=== PATIENT | female | born 1960 | race Caucasian/White ===

== ENCOUNTER 2017-11-15 10:27 | Emergency (ER) | payer OTHER ==
[~2017-11-15] VITALS: Ht 162.6 cm; Wt 74.4 kg
[~2017-11-15 10:27] MED LIST: ALBIPROI; ALBU.083IS IH; ALPR.25; AMLO5 PO; ATOR20 PO; AZIT250 PO; Aspir 8181 MG PO; BENA20 PO; CHOL10002 PO; CLOP75 PO; Coreg12.5 MG PO; FISH1000 PO; FLUSAL5005; GEMF600 PO; HYDCHL25 PO; HYDGUAL120 PO; LEVFLO500 PO; METF500; MONT10T; Mucinex600 MG PO; NIFE60ER; PRED20 PO; Prednisone20 MG PO; SERT25; TIOT18 IH; Ventolin Soln3 ML INH; ZOLP10
[2017-11-16] MEDS ORDERED: HYDR1TAB94 PO (11:59)
== END 2017-11-15 12:43 | disposition home or self-care (01) ==
LOC: ER 10:27
DX: S93.401A Sprain of unspecified ligament of right ankle, initial encounter (principal); W01.198A Fall on same level from slipping, tripping and stumbling with subsequent striking against other object, initial encounter; Z88.8 Allergy status to other drugs, medicaments and biological substances; Z88.2 Allergy status to sulfonamides; Z79.899 Other long term (current) drug therapy; Z79.82 Long term (current) use of aspirin; Z79.52 Long term (current) use of systemic steroids; J44.9 Chronic obstructive pulmonary disease, unspecified; Z87.891 Personal history of nicotine dependence
CPT/HCPCS: 73630; 99283-25

== ENCOUNTER 2017-11-16 09:56 | Emergency (ER) | payer OTHER ==
[~2017-11-16] VITALS: Ht 162.6 cm; Wt 74.4 kg
[2017-11-16] MEDS ORDERED: HYDR1TAB94 PO (11:59)
== END 2017-11-16 12:15 | disposition home or self-care (01) ==
LOC: ER 09:56
DX: S92.201A Fracture of unspecified tarsal bone(s) of right foot, initial encounter for closed fracture (principal); J44.9 Chronic obstructive pulmonary disease, unspecified; E11.9 Type 2 diabetes mellitus without complications; Z88.8 Allergy status to other drugs, medicaments and biological substances; Z88.2 Allergy status to sulfonamides; Z79.899 Other long term (current) drug therapy; Z79.82 Long term (current) use of aspirin; Z79.01 Long term (current) use of anticoagulants; Z87.891 Personal history of nicotine dependence; W01.0XXA Fall on same level from slipping, tripping and stumbling without subsequent striking against object, initial encounter
CPT/HCPCS: 29505; 99282-25

== ENCOUNTER 2018-02-20 09:13 | Day surgery (SDC) | payer OTHER ==
[~2018-02-20 09:13] MED LIST changes: +HYDR1TAB94 PO
== END 2018-02-20 22:47 | disposition home or self-care (01) ==
LOC: CT 09:13
PROVIDERS: Radiology Diagnostic Radiology
PROC: 0BBK3ZX Excision of Right Lung, Percutaneous Approach, Diagnostic (ICD-10-PCS; principal; 2018-02-20 11:00)
DX: R91.1 Solitary pulmonary nodule (principal); R91.8 Other nonspecific abnormal finding of lung field; R05 Cough; J42 Unspecified chronic bronchitis
CPT/HCPCS: 32405; 77012

== ENCOUNTER 2018-07-24 13:29 | Emergency (ER) | payer OTHER ==
[~2018-07-24] VITALS: Ht 162.6 cm; Wt 74.4 kg
[~2018-07-24 13:29] MED LIST changes: -ALPR.25; +ALPR.25 PO; -MONT10T; +MONT10T PO
[2018-07-24 13:59] LABS: BASOPHILS ABSOLUTE AUTO 0.09 K/mm3 (0.00-0.23); BASOPHILS PERCENT AUTO 1 % (0-2); EOSINOPHILS ABSOLUTE AUTO 0.43 K/mm3 (0.00-0.68); EOSINOPHILS PERCENT AUTO 4 % (0-6); Hematocrit 44.1 % (33.0-51.0); IMMATURE GRAN ABSOLUTE AUTO 0.05 K/mm3 (0.00-0.10); IMMATURE GRAN PERCENT AUTO 0 % (0-1); LYMPHOCYTES ABSOLUTE AUTO 2.63 K/mm3 (0.84-5.20); LYMPHOCYTES PERCENT AUTO 21 % (21-46); MONOCYTES PERCENT AUTO 8 % (4-13); Mean Corpuscular HGB 28.5 pg (26.0-34.0); Mean Corpuscular HGB Conc 31.7 g/dL (31.5-36.5); Mean Corpuscular Volume 90 fL (80-100); Mean Platelet Volume 10.9 fL (9.1-12.4); NEUTROPHILS ABSOLUTE AUTO 8.08 K/mm3 (1.96-9.15); NEUTROPHILS PERCENT AUTO 66 % (41-73); Platelet Count 324 K/mm3 (150-400); RDW Coefficient Variation 14.6 % (11.7-14.2); Red Blood Cell Count 4.92 M/mm3 (3.80-5.20); White Blood Cell Count 12.28 K/mm3 (4.00-11.30)
[2018-07-24 14:38] LABS: Alanine Aminotransfer (ALT/SGP 25 U/L (12-78); Albumin, Blood 3.7 g/dL (3.4-5.0); Albumin/Globulin Ratio 0.9 (0.8-1.8); Alk Phos 153 U/L (50-136); Anion Gap 7 mmol/L (6-16); Aspartate Aminotrans (AST/SGOT 19 U/L (12-37); Bilirubin, Total 0.4 mg/dL (0.1-1.0); Blood Urea Nitrogen 14 mg/dL (8-24); Bun/Creatinine Ratio 23.9 (12.0-20.0); CO2, Blood 26 mmol/L (21-32); Calcium, Blood 9.2 mg/dL (8.5-10.1); Chloride, Blood 106 mmol/L (98-108); Creatinine, Blood 0.59 mg/dL (0.40-1.00); Glomerular Filtration Rate >60 (60-); Glucose, Blood 108 mg/dL (70-99); Potassium, Blood 3.8 mmol/L (3.5-5.5); Sodium, Blood 139 mmol/L (136-145); Total Protein, Blood 7.7 g/dL (6.4-8.2); Troponin I <0.015 ng/mL (0.000-0.040)
== END 2018-07-24 15:22 | disposition left against medical advice (07) ==
LOC: ER 13:29
PROVIDERS: Physician Assistant
DX: R10.12 Left upper quadrant pain (principal); R10.30 Lower abdominal pain, unspecified; R53.83 Other fatigue; Z53.20 Procedure and treatment not carried out because of patient's decision for unspecified reasons
CPT/HCPCS: 36415; 71046; 80053; 83690; 84484; 85025; 93005; 93010; 99284-25

== ENCOUNTER → 2018-07-25 | Outpatient (CLI) | payer OTHER | END | disposition home or self-care (01) | LOC: LAB SHORT 12:10 → LAB 12:10 | DX: R05 Cough (principal) | CPT/HCPCS: 87070; 87077; 87186; 87205 ==

== ENCOUNTER 2018-07-27 10:52 | Emergency (ER) | payer OTHER ==
[~2018-07-27] VITALS: Ht 261.6 cm; Wt 74.4 kg
[2018-07-27 12:02] LABS: BASOPHILS ABSOLUTE AUTO 0.06 K/mm3 (0.00-0.23); BASOPHILS PERCENT AUTO 0 % (0-2); EOSINOPHILS ABSOLUTE AUTO 0.09 K/mm3 (0.00-0.68); EOSINOPHILS PERCENT AUTO 1 % (0-6); Hematocrit 43.2 % (33.0-51.0); Hemoglobin 13.8 g/dL (11.5-16.0); IMMATURE GRAN ABSOLUTE AUTO 0.07 K/mm3 (0.00-0.10); IMMATURE GRAN PERCENT AUTO 1 % (0-1); LYMPHOCYTES ABSOLUTE AUTO 1.49 K/mm3 (0.84-5.20); LYMPHOCYTES PERCENT AUTO 10 % (21-46); MONOCYTES ABSOLUTE AUTO 0.55 K/mm3 (0.16-1.47); MONOCYTES PERCENT AUTO 4 % (4-13); Mean Corpuscular HGB 28.5 pg (26.0-34.0); Mean Corpuscular HGB Conc 31.9 g/dL (31.5-36.5); Mean Corpuscular Volume 89 fL (80-100); NEUTROPHILS ABSOLUTE AUTO 12.65 K/mm3 (1.96-9.15); NEUTROPHILS PERCENT AUTO 85 % (41-73); Platelet Count 319 K/mm3 (150-400); RDW Coefficient Variation 14.6 % (11.7-14.2); Red Blood Cell Count 4.85 M/mm3 (3.80-5.20); White Blood Cell Count 14.91 K/mm3 (4.00-11.30)
[2018-07-27 12:35] LABS: Alanine Aminotransfer (ALT/SGP 23 U/L (12-78); Albumin, Blood 3.7 g/dL (3.4-5.0); Albumin/Globulin Ratio 0.9 (0.8-1.8); Alk Phos 133 U/L (50-136); Anion Gap 4 mmol/L (6-16); Aspartate Aminotrans (AST/SGOT 16 U/L (12-37); Bilirubin, Total 0.3 mg/dL (0.1-1.0); Blood Urea Nitrogen 16 mg/dL (8-24); Bun/Creatinine Ratio 27.6 (12.0-20.0); CO2, Blood 28 mmol/L (21-32); Calcium, Blood 8.9 mg/dL (8.5-10.1); Chloride, Blood 107 mmol/L (98-108); Creatinine, Blood 0.58 mg/dL (0.40-1.00); Globulin, Blood 3.9 g/dL (2.2-4.0); Glomerular Filtration Rate >60 (60-); Glucose, Blood 167 mg/dL (70-99); Potassium, Blood 3.8 mmol/L (3.5-5.5); Sodium, Blood 139 mmol/L (136-145); Total Protein, Blood 7.6 g/dL (6.4-8.2); Troponin I <0.015 ng/mL (0.000-0.040)
== END 2018-07-27 14:50 | disposition home or self-care (01) ==
LOC: ER 10:52
PROVIDERS: Emergency Medicine
DX: R10.9 Unspecified abdominal pain (principal); Z88.8 Allergy status to other drugs, medicaments and biological substances; Z88.2 Allergy status to sulfonamides; Z88.1 Allergy status to other antibiotic agents; Z79.899 Other long term (current) drug therapy; Z79.82 Long term (current) use of aspirin; Z79.52 Long term (current) use of systemic steroids; J44.9 Chronic obstructive pulmonary disease, unspecified; E11.9 Type 2 diabetes mellitus without complications; E78.5 Hyperlipidemia, unspecified; I10 Essential (primary) hypertension; F17.200 Nicotine dependence, unspecified, uncomplicated
CPT/HCPCS: 36415; 74177; 80053; 84484; 85025; 93005; 93010; 99284-25; Q9967

== ENCOUNTER → 2018-08-21 | Outpatient (CLI) | payer OTHER ==
[~2018-08-21] MED LIST changes: +ALBU90OI INH; -ALPR.25 PO; +ALPR.5 PO; -AMLO5 PO; +Advair Hfa 230-12 GM INH; +Amlodipine Bes2.5 MG PO; +FAMO40 PO; +FOLI1 PO; +PRED20; -TIOT18 IH; +TIOT18 INH
[2018-08-21 09:00] LABS: Alanine Aminotransfer (ALT/SGP 22 U/L (12-78); Albumin, Blood 3.7 g/dL (3.4-5.0); Albumin/Globulin Ratio 1.1 (0.8-1.8); Alk Phos 138 U/L (50-136); Anion Gap 7 mmol/L (6-16); Aspartate Aminotrans (AST/SGOT 8 U/L (12-37); Bilirubin, Total 0.2 mg/dL (0.1-1.0); Blood Urea Nitrogen 19 mg/dL (8-24); Bun/Creatinine Ratio 31.6 (12.0-20.0); CO2, Blood 29 mmol/L (21-32); Calcium, Blood 9.2 mg/dL (8.5-10.1); Chloride, Blood 104 mmol/L (98-108); Globulin, Blood 3.5 g/dL (2.2-4.0); Glomerular Filtration Rate >60 (60-); Glucose, Blood 184 mg/dL (70-99); Magnesium, Blood 1.9 mg/dL (1.6-2.4); Potassium, Blood 3.8 mmol/L (3.5-5.5); Sodium, Blood 140 mmol/L (136-145); Total Protein, Blood 7.2 g/dL (6.4-8.2)
== END | disposition home or self-care (01) ==
LOC: LAB 08:29 → LAB SHORT 08:29
PROVIDERS: Internal Medicine Hematology & Oncology
DX: C34.91 Malignant neoplasm of unspecified part of right bronchus or lung (principal)
CPT/HCPCS: 80053; 83735

== ENCOUNTER 2018-08-27 10:06 | Day surgery (SDC) | payer OTHER ==
[~2018-08-27] VITALS: Ht 162.6 cm; Wt 70.7 kg
[~2018-08-27 10:06] MED LIST changes: -ALBU90OI INH; -Advair Hfa 230-12 GM INH; -FAMO40 PO; -PRED20
--- NOTE | 2018-08-27 12:48 | NUR ---
History, Chart, Medications and Allergies reviewed before start of procedure. Lungs clear T/O to Auscultation. Patient confirms NPO status and agrees with scheduled surgery. Patient reports completing Chlorhexadine shower X2 prior to admission to hospital.
--- NOTE | 2018-08-27 15:41 | NUR ---
Patient up to Ambulate independently. Gait steady. Discharge instructions reviewed with patient. Patient verbalizes understanding. Copy given to patient to take home. Patient States Post-Procedure ride home has been arranged. Discharged via wheelchair to private car for ride home.
== END 2018-08-27 23:07 | disposition home or self-care (01) ==
LOC: ORSCMMR 10:06 → ORD 11:30 → ORSCMMR 11:30
PROVIDERS: Surgery
PROC: B5131ZA Fluoroscopy of Right Jugular Veins using Low Osmolar Contrast, Guidance (ICD-10-PCS; principal; 2018-08-27 11:30)
PROC: 05HM33Z Insertion of Infusion Device into Right Internal Jugular Vein, Percutaneous Approach (ICD-10-PCS; principal; 2018-08-27 11:30)
DX: C34.91 Malignant neoplasm of unspecified part of right bronchus or lung (principal); I10 Essential (primary) hypertension; J44.9 Chronic obstructive pulmonary disease, unspecified; E11.9 Type 2 diabetes mellitus without complications; F17.210 Nicotine dependence, cigarettes, uncomplicated; Z79.82 Long term (current) use of aspirin; Z79.899 Other long term (current) drug therapy
CPT/HCPCS: 77001; 82947; C1788; J0690; J1100; J1642; J2250; J2370; J2405; J2704; J3010; J7120

== ENCOUNTER → 2018-09-15 | Outpatient (CLI) | payer OTHER ==
[~2018-09-15] MED LIST changes: +ALBU90OI INH; +Advair Hfa 230-12 GM INH; +FAMO40 PO; +PRED20
[2018-09-15 10:07] LABS: Alanine Aminotransfer (ALT/SGP 21 U/L (12-78); Albumin, Blood 3.4 g/dL (3.4-5.0); Alk Phos 136 U/L (50-136); Anion Gap 10 mmol/L (6-16); Aspartate Aminotrans (AST/SGOT 7 U/L (12-37); Bilirubin, Total 0.2 mg/dL (0.1-1.0); Blood Urea Nitrogen 17 mg/dL (8-24); Bun/Creatinine Ratio 28.9 (12.0-20.0); CO2, Blood 26 mmol/L (21-32); Chloride, Blood 106 mmol/L (98-108); Creatinine, Blood 0.59 mg/dL (0.40-1.00); Globulin, Blood 3.3 g/dL (2.2-4.0); Glomerular Filtration Rate >60 (60-); Glucose, Blood 201 mg/dL (70-99); Magnesium, Blood 1.7 mg/dL (1.6-2.4); Sodium, Blood 142 mmol/L (136-145); Total Protein, Blood 6.7 g/dL (6.4-8.2)
== END | disposition home or self-care (01) ==
LOC: LAB SHORT 09:45 → LAB 09:45
PROVIDERS: Internal Medicine Hematology & Oncology
DX: C34.91 Malignant neoplasm of unspecified part of right bronchus or lung (principal)
CPT/HCPCS: 80053; 83735

== ENCOUNTER → 2018-10-07 | Outpatient (CLI) | payer OTHER ==
[2018-10-07 09:16] LABS: Alanine Aminotransfer (ALT/SGP 21 U/L (12-78); Albumin, Blood 3.4 g/dL (3.4-5.0); Albumin/Globulin Ratio 1.1 (0.8-1.8); Alk Phos 131 U/L (50-136); Anion Gap 7 mmol/L (6-16); Aspartate Aminotrans (AST/SGOT 9 U/L (12-37); Bilirubin, Total 0.2 mg/dL (0.1-1.0); Blood Urea Nitrogen 22 mg/dL (8-24); Bun/Creatinine Ratio 31.3 (12.0-20.0); CO2, Blood 29 mmol/L (21-32); Calcium, Blood 8.9 mg/dL (8.5-10.1); Chloride, Blood 103 mmol/L (98-108); Globulin, Blood 3.1 g/dL (2.2-4.0); Glomerular Filtration Rate >60 (60-); Glucose, Blood 281 mg/dL (70-99); Magnesium, Blood 1.6 mg/dL (1.6-2.4); Potassium, Blood 3.9 mmol/L (3.5-5.5); Sodium, Blood 139 mmol/L (136-145); Total Protein, Blood 6.5 g/dL (6.4-8.2)
== END | disposition home or self-care (01) ==
LOC: LAB SHORT 08:53 → LAB 08:53
PROVIDERS: Internal Medicine Hematology & Oncology
DX: C34.91 Malignant neoplasm of unspecified part of right bronchus or lung (principal)
CPT/HCPCS: 80053; 83735

== ENCOUNTER 2018-10-13 18:58 | Observation (INO) | payer OTHER ==
[~2018-10-13] VITALS: Ht 177.8 cm; Wt 75.1 kg
[~2018-10-13 18:58] MED LIST changes: -ALBU90OI INH; -Advair Hfa 230-12 GM INH; -FAMO40 PO; -PRED20
[2018-10-13 19:39] LABS: Hematocrit 37.6 % (33.0-51.0); Hemoglobin 12.6 g/dL (11.5-16.0); LYMPHOCYTES ABSOLUTE AUTO 2.59 K/mm3 (0.84-5.20); LYMPHOCYTES PERCENT AUTO 7 % (21-46); MONOCYTES ABSOLUTE AUTO 3.06 K/mm3 (0.16-1.47); MONOCYTES PERCENT AUTO 8 % (4-13); Mean Corpuscular HGB 29.2 pg (26.0-34.0); Mean Corpuscular HGB Conc 33.5 g/dL (31.5-36.5); Mean Corpuscular Volume 87 fL (80-100); Mean Platelet Volume 10.9 fL (9.1-12.4); Platelet Count 280 K/mm3 (150-400); RDW Coefficient Variation 15.3 % (11.7-14.2); RDW Standard Deviation 48.9 fL (35.1-46.3); Red Blood Cell Count 4.32 M/mm3 (3.80-5.20); White Blood Cell Count 39.18 K/mm3 (4.00-11.30)
[2018-10-13 19:40] LABS: BASOPHILS ABSOLUTE AUTO 0.02 K/mm3 (0.00-0.23); BASOPHILS PERCENT AUTO 0 % (0-2); EOSINOPHILS ABSOLUTE AUTO 0.22 K/mm3 (0.00-0.68); EOSINOPHILS PERCENT AUTO 1 % (0-6); IMMATURE GRAN ABSOLUTE AUTO 0.77 K/mm3 (0.00-0.10); IMMATURE GRAN PERCENT AUTO 2 % (0-1); NEUTROPHILS ABSOLUTE AUTO 32.52 K/mm3 (1.96-9.15); NEUTROPHILS PERCENT AUTO 83 % (41-73)
[2018-10-13 19:51] LABS: Alanine Aminotransfer (ALT/SGP 20 U/L (12-78); Albumin, Blood 3.2 g/dL (3.4-5.0); Albumin/Globulin Ratio 0.9 (0.8-1.8); Alk Phos 233 U/L (50-136); Anion Gap 5 mmol/L (6-16); Aspartate Aminotrans (AST/SGOT 18 U/L (12-37); Bilirubin, Total 0.2 mg/dL (0.1-1.0); Blood Urea Nitrogen 18 mg/dL (8-24); Bun/Creatinine Ratio 25.9 (12.0-20.0); CO2, Blood 29 mmol/L (21-32); Calcium, Blood 8.3 mg/dL (8.5-10.1); Chloride, Blood 97 mmol/L (98-108); Globulin, Blood 3.4 g/dL (2.2-4.0); Glomerular Filtration Rate >60 (60-); Glucose, Blood 189 mg/dL (70-99); Potassium, Blood 3.7 mmol/L (3.5-5.5); Sodium, Blood 131 mmol/L (136-145); Total Protein, Blood 6.6 g/dL (6.4-8.2); Troponin I <0.015 ng/mL (0.000-0.040)
[2018-10-13] MEDS ORDERED: ALBU90OI INH (21:58)
[2018-10-13] MEDS ORDERED: Advair Hfa 230-12 GM INH (22:00)
[2018-10-13] MEDS ORDERED: AZIT250 PO (22:03)
--- NOTE | 2018-10-14 06:24 | NUR ---
T/F AND SUMMARY: REPORT RECIEVED FROM JEANETH TROTTER RN AND PT T/F'D TO ROOM 302 VIA [employer] AT 0203. SHE WAS ORIENTED TO ROOM AND CALL SYSTEM AND INSTRUCTED TO CALL FOR ASSIST OOB D/T COMPLAINT OF RECENT INCREASED WEAKNESS. SHE REPORTED CHEST/PLEURITIC PAIN W/TORADOL RECIEVED FOR GOOD EFFECT. SHE'S DENIES S/S CARDIAC DISTRESS BUT HAS REPORTED SOME NEW INDEGESTION/REFLUX SHE CONTRIBUTES TO RECENT CHEMO. MEDIPORT IS PRESENT TO R.CW BUT IS NOT ACCESSED. PT HAS LUNG CANCER W/TX 1 WEEK AGO. SHE'S ALSO HAD A L.MIDDLE LOBECTOMY AND L.UPPER LOBE RESECTION RESULT OF CANCER. LS WERE COARSE IN THE BASES W/WHEEZE HEARD TO R.UPPER LOBE, RT MADE AWARE. SHE WORE 2L O2 AT HS PER HOME DOSING FOR SPO2>92%. TELEMETRY WAS APPLIED AND PT HAS REMAINED IN NSR AT 80'S-90'S BPM. IV ABX WERE RECIEVED THEN SL. PE STUDY WAS (-). SPUTUM SPECIMEN WAS OBTAINED AND SENT BUT UNSURE IF SPECIMEN WILL BE ADEQUATE. RESPIRATORY PANEL WAS ALSO OBTAINED. NO ACUTE CHANGES, VSS/AFEBRILE. BP SLIGHTLY HYPERTENSIVE THIS AM BUT PT DUE TO HAVE SCHEDULED MEDS ON DAY SHIFT. WCTM AND REPORT TO DAY RN.
[2018-10-14 08:22] LABS: Hematocrit 34.8 % (33.0-51.0); Hemoglobin 11.9 g/dL (11.5-16.0); Mean Corpuscular HGB 29.2 pg (26.0-34.0); Mean Corpuscular HGB Conc 34.2 g/dL (31.5-36.5); Mean Corpuscular Volume 86 fL (80-100); Mean Platelet Volume 10.6 fL (9.1-12.4); Platelet Count 222 K/mm3 (150-400); RDW Coefficient Variation 15.4 % (11.7-14.2); RDW Standard Deviation 47.5 fL (35.1-46.3); Red Blood Cell Count 4.07 M/mm3 (3.80-5.20); White Blood Cell Count 32.46 K/mm3 (4.00-11.30)
[2018-10-14 09:22] LABS: Alanine Aminotransfer (ALT/SGP 15 U/L (12-78); Albumin, Blood 2.9 g/dL (3.4-5.0); Albumin/Globulin Ratio 0.8 (0.8-1.8); Alk Phos 216 U/L (50-136); Anion Gap 6 mmol/L (6-16); Aspartate Aminotrans (AST/SGOT 12 U/L (12-37); Bilirubin, Total 0.4 mg/dL (0.1-1.0); Blood Urea Nitrogen 15 mg/dL (8-24); Bun/Creatinine Ratio 23.2 (12.0-20.0); CO2, Blood 28 mmol/L (21-32); Calcium, Blood 8.2 mg/dL (8.5-10.1); Chloride, Blood 100 mmol/L (98-108); Creatinine, Blood 0.65 mg/dL (0.40-1.00); Globulin, Blood 3.5 g/dL (2.2-4.0); Glomerular Filtration Rate >60 (60-); Glucose, Blood 134 mg/dL (70-99); Potassium, Blood 3.8 mmol/L (3.5-5.5); Sodium, Blood 134 mmol/L (136-145); Total Protein, Blood 6.4 g/dL (6.4-8.2)
--- NOTE | 2018-10-14 10:50 | NUR ---
Upon receiving an admit referral, I visited patient. Patient is lying in bed and alert with life partner Graham, Bedside. Patient tells about her recent hospital stay, about her family and about what inspires and strengthens her. I listen empathically, encourage self care and provide a calming presence. Patient and Graham respond well and show signs of reduced stress.
--- NOTE | 2018-10-14 16:28 | NUR ---
SHIFT SUMMARY MEDICATED FOR PAIN X1 THIS SHIFT. PT HAS BEEN INDEPENDENT IN ROOM. OXYGEN AT 2L VIA NC. PT HAS HAD NO FURTHER REQUESTS OR COMPLAINTS THIS SHIFT. NO ACUTE CHANGES THIS SHIFT. CALL LIGHT IN REACH. WILL CONTINUE TO MONITOR AND REPORT TO ONCOMING RN.
[2018-10-14 18:13] LABS: Adenovirus Not Detected (NOT DETECT); Bordetella pertussis Not Detected (NOT DETECT); Chlamydophila pneumoniae Not Detected (NOT DETECT); Coronavirus 229E Not Detected (NOT DETECT); Coronavirus HKU1 Not Detected (NOT DETECT); Coronavirus NL63 Not Detected (NOT DETECT); Coronavirus OC43 Not Detected (NOT DETECT); Human Metapneumovirus Not Detected (NOT DETECT); Human Rhinovirus/Enterovirus Not Detected (NOT DETECT); Influenza A Not Detected (NOT DETECT); Influenza A/2009-H1 Not Detected (NOT DETECT); Influenza A/H1 Not Detected (NOT DETECT); Influenza A/H3 Not Detected (NOT DETECT); Influenza B Not Detected (NOT DETECT); Mycoplasma pneumoniae Not Detected (NOT DETECT); Parainfluenza Virus 1 Not Detected (NOT DETECT); Parainfluenza Virus 2 Not Detected (NOT DETECT); Parainfluenza Virus 3 Not Detected (NOT DETECT); Parainfluenza Virus 4 Not Detected (NOT DETECT); Respiratory Syncytial Virus Not Detected (NOT DETECT)
[2018-10-15 04:58] LABS: EOSINOPHILS PERCENT AUTO 0 % (0-6); Hematocrit 33.6 % (33.0-51.0); Hemoglobin 11.4 g/dL (11.5-16.0); IMMATURE GRAN ABSOLUTE AUTO 0.91 K/mm3 (0.00-0.10); IMMATURE GRAN PERCENT AUTO 2 % (0-1); LYMPHOCYTES ABSOLUTE AUTO 0.63 K/mm3 (0.84-5.20); LYMPHOCYTES PERCENT AUTO 2 % (21-46); MONOCYTES ABSOLUTE AUTO 1.16 K/mm3 (0.16-1.47); MONOCYTES PERCENT AUTO 3 % (4-13); Mean Corpuscular HGB Conc 33.9 g/dL (31.5-36.5); Mean Corpuscular Volume 86 fL (80-100); Mean Platelet Volume 11.4 fL (9.1-12.4); NEUTROPHILS ABSOLUTE AUTO 37.18 K/mm3 (1.96-9.15); NEUTROPHILS PERCENT AUTO 93 % (41-73); Platelet Count 224 K/mm3 (150-400); RDW Coefficient Variation 15.3 % (11.7-14.2); RDW Standard Deviation 47.8 fL (35.1-46.3); Red Blood Cell Count 3.93 M/mm3 (3.80-5.20); White Blood Cell Count 39.91 K/mm3 (4.00-11.30)
[2018-10-15 04:59] LABS: BASOPHILS ABSOLUTE AUTO 0.03 K/mm3 (0.00-0.23); BASOPHILS PERCENT AUTO 0 % (0-2)
[2018-10-15 05:20] LABS: Anion Gap 8 mmol/L (6-16); Blood Urea Nitrogen 17 mg/dL (8-24); Bun/Creatinine Ratio 34.2 (12.0-20.0); CO2, Blood 25 mmol/L (21-32); Calcium, Blood 8.4 mg/dL (8.5-10.1); Chloride, Blood 103 mmol/L (98-108); Glomerular Filtration Rate >60 (60-); Glucose, Blood 292 mg/dL (70-99); Potassium, Blood 4.1 mmol/L (3.5-5.5); Sodium, Blood 136 mmol/L (136-145)
--- NOTE | 2018-10-15 06:18 | NUR ---
SHIFT SUMMARY: 58 Y/O FEMALE RESTED COMFORTABLY ALL SHIFT, TELEMETRY REFLECTS NSR, DENIES PAIN OR NAUSEA, BED LOW POSITION, CALL LIGHT AT SIDE.
[2018-10-15] MEDS ORDERED: FAMO40 PO (11:36)
[2018-10-15] MEDS ORDERED: PRED20 (11:37)
--- NOTE | 2018-10-15 12:30 | NUR ---
PT. DISCHARGED HOME WITH SPOUSE.INSTRUCTIONS GIVEN AND SHE VERBALIZED UNDERSTANDING.
== END 2018-10-15 13:33 | disposition home or self-care (01) ==
LOC: ER 18:58 → MEDS 18:59 → ER 10-14 00:38 → MEDS 10-14 00:38
PROVIDERS: Internal Medicine; Physician Assistant; ADMIT Internal Medicine
DX: J44.0 Chronic obstructive pulmonary disease with (acute) lower respiratory infection (principal); J20.9 Acute bronchitis, unspecified; J96.20 Acute and chronic respiratory failure, unspecified whether with hypoxia or hypercapnia; D72.829 Elevated white blood cell count, unspecified; E11.9 Type 2 diabetes mellitus without complications; G43.909 Migraine, unspecified, not intractable, without status migrainosus; F32.9 Major depressive disorder, single episode, unspecified; F41.9 Anxiety disorder, unspecified; K21.9 Gastro-esophageal reflux disease without esophagitis; E78.5 Hyperlipidemia, unspecified; F17.210 Nicotine dependence, cigarettes, uncomplicated; Z79.899 Other long term (current) drug therapy; Z79.82 Long term (current) use of aspirin; Z79.51 Long term (current) use of inhaled steroids; Z88.2 Allergy status to sulfonamides; Z88.8 Allergy status to other drugs, medicaments and biological substances; Z88.0 Allergy status to penicillin; Z91.041 Radiographic dye allergy status
CPT/HCPCS: 0099U; 36415; 71046; 71260; 76705; 80048; 80053; 82947; 83605; 83690; 84484; 85025; 85027; 85379; 87070; 87077; 87186; 87205; 93005; 93010; 94640; 94760; 96365; 96366; 96367; 96372; 96375; 96376; 99285-25; G0378; J0456; J1650; J1885; J1956; J2270; J2405; J2930; J3010; J3370; J7050; Q9967

== ENCOUNTER → 2018-10-28 | Outpatient (CLI) | payer OTHER ==
[~2018-10-28] MED LIST changes: +ALBU90OI INH; +Advair Hfa 230-12 GM INH; +FAMO40 PO; +PRED20
[2018-10-28 09:39] LABS: Alanine Aminotransfer (ALT/SGP 24 U/L (12-78); Albumin, Blood 3.2 g/dL (3.4-5.0); Albumin/Globulin Ratio 1.1 (0.8-1.8); Alk Phos 114 U/L (50-136); Anion Gap 8 mmol/L (6-16); Aspartate Aminotrans (AST/SGOT 13 U/L (12-37); Bilirubin, Total 0.4 mg/dL (0.1-1.0); Blood Urea Nitrogen 12 mg/dL (8-24); Bun/Creatinine Ratio 25.4 (12.0-20.0); CO2, Blood 26 mmol/L (21-32); Calcium, Blood 8.3 mg/dL (8.5-10.1); Chloride, Blood 101 mmol/L (98-108); Creatinine, Blood 0.47 mg/dL (0.40-1.00); Glomerular Filtration Rate >60 (60-); Glucose, Blood 264 mg/dL (70-99); Potassium, Blood 4.5 mmol/L (3.5-5.5); Sodium, Blood 135 mmol/L (136-145); Total Protein, Blood 6.2 g/dL (6.4-8.2)
[2018-10-28 09:54] LABS: Magnesium, Blood 1.1 mg/dL (1.6-2.4)
== END | disposition home or self-care (01) ==
LOC: LAB 08:09 → LAB SHORT 08:09
PROVIDERS: Internal Medicine Hematology & Oncology
DX: C34.91 Malignant neoplasm of unspecified part of right bronchus or lung (principal)
CPT/HCPCS: 80053; 83735

== ENCOUNTER → 2018-10-29 | Outpatient (CLI) | payer OTHER | END | disposition home or self-care (01) | LOC: LAB 09:57 → LAB SHORT 09:57 | DX: C34.91 Malignant neoplasm of unspecified part of right bronchus or lung (principal) | CPT/HCPCS: 36415; 83735 ==

== ENCOUNTER → 2018-12-16 | Outpatient (CLI) | payer OTHER ==
[2018-12-16 14:53] LABS: Alanine Aminotransfer (ALT/SGP 36 U/L (12-78); Albumin, Blood 3.7 g/dL (3.4-5.0); Albumin/Globulin Ratio 1.2 (0.8-1.8); Alk Phos 110 U/L (50-136); Anion Gap 6 mmol/L (6-16); Aspartate Aminotrans (AST/SGOT 23 U/L (12-37); Bilirubin, Total 0.3 mg/dL (0.1-1.0); Blood Urea Nitrogen 15 mg/dL (8-24); Bun/Creatinine Ratio 24.6 (12.0-20.0); CO2, Blood 28 mmol/L (21-32); Calcium, Blood 8.9 mg/dL (8.5-10.1); Chloride, Blood 107 mmol/L (98-108); Creatinine, Blood 0.61 mg/dL (0.40-1.00); Glomerular Filtration Rate >60 (60-); Glucose, Blood 106 mg/dL (70-99); Magnesium, Blood 1.4 mg/dL (1.6-2.4); Sodium, Blood 141 mmol/L (136-145); Total Protein, Blood 6.7 g/dL (6.4-8.2)
== END ==
LOC: LAB 10:10 → LAB SHORT 10:10
PROVIDERS: Internal Medicine Hematology & Oncology
DX: C34.91 Malignant neoplasm of unspecified part of right bronchus or lung (principal); R10.9 Unspecified abdominal pain; E78.5 Hyperlipidemia, unspecified
CPT/HCPCS: 80053; 83735

== ENCOUNTER → 2019-07-15 | Outpatient (CLI) | payer OTHER | END | disposition home or self-care (01) | LOC: LAB SHORT 11:50 → LAB 11:50 | DX: R05 Cough (principal) | CPT/HCPCS: 87070; 87205 ==

== ENCOUNTER 2020-01-04 02:59 | Emergency (ER) | payer OTHER ==
[~2020-01-04] VITALS: Ht 162.6 cm; Wt 72.6 kg
[~2020-01-04 02:59] MED LIST changes: +Percocet 5-3251 EACH PO
[2020-01-04] MEDS ORDERED: LIDO700A20 TOP (04:30)
== END 2020-01-04 04:36 | disposition home or self-care (01) ==
LOC: ER 02:59
DX: R07.89 Other chest pain (principal); F17.210 Nicotine dependence, cigarettes, uncomplicated; J44.9 Chronic obstructive pulmonary disease, unspecified; E11.9 Type 2 diabetes mellitus without complications; Z88.2 Allergy status to sulfonamides; Z91.041 Radiographic dye allergy status; Z88.0 Allergy status to penicillin; Z88.1 Allergy status to other antibiotic agents; Z79.899 Other long term (current) drug therapy; Z79.82 Long term (current) use of aspirin
CPT/HCPCS: 71101; 99283; A9270

== ENCOUNTER 2020-01-20 13:31 | Inpatient (IN) | payer OTHER ==
[~2020-01-20] VITALS: Ht 162.6 cm; Wt 72.3 kg
[~2020-01-20 13:31] MED LIST changes: +LIDO700A20 TOP
[2020-01-20 13:52] LABS: Hematocrit 29.4 % (33.0-51.0); Hemoglobin 9.2 g/dL (11.5-16.0); Mean Corpuscular HGB 27.8 pg (26.0-34.0); Mean Corpuscular HGB Conc 31.3 g/dL (31.5-36.5); Mean Corpuscular Volume 89 fL (80-100); Mean Platelet Volume 9.4 fL (9.1-12.4); NRBC ABSOLUTE 0.02 K/mm3 (0.00-0.02); NRBC Auto 0.1 /100 WBC (0.0-0.2); Platelet Count 456 K/mm3 (150-400); RDW Coefficient Variation 14.9 % (11.7-14.2); RDW Standard Deviation 48.5 fL (35.1-46.3); Red Blood Cell Count 3.31 M/mm3 (3.80-5.20); White Blood Cell Count 26.72 K/mm3 (4.00-11.30)
[2020-01-20 14:12] LABS: Alanine Aminotransfer (ALT/SGP 61 U/L (12-78); Albumin, Blood 2.4 g/dL (3.4-5.0); Albumin/Globulin Ratio 0.6 (0.8-1.8); Alk Phos 232 U/L (50-136); Anion Gap 5 mmol/L (6-16); Aspartate Aminotrans (AST/SGOT 82 U/L (12-37); Bilirubin, Total 0.3 mg/dL (0.1-1.0); Blood Urea Nitrogen 17 mg/dL (8-24); Bun/Creatinine Ratio 27.8 (12.0-20.0); CO2, Blood 30 mmol/L (21-32); Calcium, Blood 8.8 mg/dL (8.5-10.1); Chloride, Blood 99 mmol/L (98-108); Creatinine, Blood 0.61 mg/dL (0.40-1.00); Globulin, Blood 4.3 g/dL (2.2-4.0); Glomerular Filtration Rate >60 (60-); Glucose, Blood 128 mg/dL (70-99); Potassium, Blood 4.5 mmol/L (3.5-5.5); Sodium, Blood 134 mmol/L (136-145); Total Protein, Blood 6.7 g/dL (6.4-8.2); Troponin I <0.015 ng/mL (0.000-0.040)
[2020-01-20 14:26] LABS: BASOPHILS PERCENT MAN 0 % (0-2); EOSINOPHILS PERCENT MAN 0 % (0-6); LYMPHOCYTES ABSOLUTE MAN 1.06 K/mm3 (0.84-5.20); LYMPHOCYTES PERCENT MAN 4 % (21-46); MONOCYTES ABSOLUTE MAN 0.26 K/mm3 (0.16-1.47); MONOCYTES PERCENT MAN 1 % (4-13); NEUTROPHILS ABSOLUTE MAN 25.38 K/mm3 (1.96-9.15); SEG NEUTROPHILS PERCENT MAN 95 % (41-73); TOTAL CELLS COUNTED 100
--- NOTE | 2020-01-20 17:20 | NUR ---
pt being admited from ER no polst or AD on file. case confrence with intensive care ambulance paramedic in ER.
[2020-01-20 18:04] LABS: SARS-Cov-2 (COVID-19) PCR, MMC Negative (NEGATIVE)
[2020-01-20 18:05] LABS: Influenza A, PCR Negative (NEGATIVE); Influenza B, PCR Negative (NEGATIVE); Resp Syncytial Virus, PCR Negative (NEGATIVE)
[2020-01-20 18:05] LABS: International Normalized Ratio 1.07; Prothrombin Time Results 11.4 Sec (9.7-11.5)
[2020-01-21 01:59] LABS: Adenovirus Not Detected (NOT DETECT); Bordetella pertussis Not Detected (NOT DETECT); Chlamydophila pneumoniae Not Detected (NOT DETECT); Coronavirus 229E Not Detected (NOT DETECT); Coronavirus HKU1 Not Detected (NOT DETECT); Coronavirus NL63 Not Detected (NOT DETECT); Coronavirus OC43 Not Detected (NOT DETECT); Human Metapneumovirus Not Detected (NOT DETECT); Human Rhinovirus/Enterovirus Not Detected (NOT DETECT); Influenza A/2009-H1 Not Detected (NOT DETECT); Influenza A/H1 Not Detected (NOT DETECT); Influenza A/H3 Not Detected (NOT DETECT); Influenza B Not Detected (NOT DETECT); Mycoplasma pneumoniae Not Detected (NOT DETECT); Parainfluenza Virus 1 Not Detected (NOT DETECT); Parainfluenza Virus 2 Not Detected (NOT DETECT); Parainfluenza Virus 3 Not Detected (NOT DETECT); Parainfluenza Virus 4 Not Detected (NOT DETECT); Respiratory Syncytial Virus Not Detected (NOT DETECT); SARS-Cov-2 (COVID-19), BioFire Not Detected (NOT DETECT)
--- NOTE | 2020-01-21 05:30 | NUR ---
SHIFT SUMMARY PT A/O X4; PLEASANT AND COOPERATIVE WITH CARE. PT IS SBA/IND TO THE BATHROOM. SHE IS CURRENTLY ON 3 LITERS O2 VIA NC. C/O SOB AND COUGHING. HX LUNG CANCER AND ONCOLOGY CONSULT CALLED THIS SHIFT. THE PATIENT HAS AN UNACCESSED MEDIPORT IN THE R CHEST WALL. PT HAS BEEN SLEEPING FOR THE MAJORITY OF THE SHIFT. VSS; RESTING IN BED W/CALL LIGHT IN REACH.
[2020-01-21 06:19] LABS: Hematocrit 28.9 % (33.0-51.0); Hemoglobin 8.9 g/dL (11.5-16.0); Mean Corpuscular HGB 27.1 pg (26.0-34.0); Mean Corpuscular HGB Conc 30.8 g/dL (31.5-36.5); Mean Corpuscular Volume 88 fL (80-100); Mean Platelet Volume 9.3 fL (9.1-12.4); NRBC ABSOLUTE 0.02 K/mm3 (0.00-0.02); NRBC Auto 0.1 /100 WBC (0.0-0.2); Platelet Count 447 K/mm3 (150-400); RDW Coefficient Variation 14.7 % (11.7-14.2); Red Blood Cell Count 3.28 M/mm3 (3.80-5.20); White Blood Cell Count 25.08 K/mm3 (4.00-11.30)
--- NOTE | 2020-01-21 06:19 | NUR ---
I AGREE WITH KATIUSKA WASHINGTON'S ASSESSMENT ON THIS PATIENT.
[2020-01-21 06:41] LABS: Alanine Aminotransfer (ALT/SGP 42 U/L (12-78); Albumin, Blood 2.3 g/dL (3.4-5.0); Albumin/Globulin Ratio 0.6 (0.8-1.8); Alk Phos 204 U/L (50-136); Anion Gap 7 mmol/L (6-16); Aspartate Aminotrans (AST/SGOT 31 U/L (12-37); Bilirubin, Total 0.4 mg/dL (0.1-1.0); Blood Urea Nitrogen 16 mg/dL (8-24); Bun/Creatinine Ratio 25.4 (12.0-20.0); CO2, Blood 29 mmol/L (21-32); Calcium, Blood 8.5 mg/dL (8.5-10.1); Chloride, Blood 100 mmol/L (98-108); Creatinine, Blood 0.63 mg/dL (0.40-1.00); Globulin, Blood 3.9 g/dL (2.2-4.0); Glomerular Filtration Rate >60 (60-); Glucose, Blood 193 mg/dL (70-99); Potassium, Blood 3.9 mmol/L (3.5-5.5); Sodium, Blood 136 mmol/L (136-145); Total Protein, Blood 6.2 g/dL (6.4-8.2); Troponin I <0.015 ng/mL (0.000-0.040)
--- NOTE | 2020-01-21 13:19 | NUR ---
ECHOCARDIOGRAM COMPLETED
--- NOTE | 2020-01-21 13:20 | NUR ---
Spiritual care visit/Advance Directive (AD) Education conducted. Patient is lying in bed and laert. Patient expresses interest in AD so I explain the importance and process. I walk her through the sections of the AD booklet she tells me that she does not want chest compressions, a "vent" or a "feeding tube" and so I point to the section that pertains to these issues. I also tell her about the filing process and that we have a few noteries on staff. Patient voices a comprehension of the information. I talk with patient about her diagnosis and the things and people that inspire her. Patient shares personal information. I listen empathically and provide a calming presence. Patient receives a call as we are wrapping up and so I let her talk to her son as I exit the .
--- NOTE | 2020-01-21 16:36 | NUR ---
PATIENT IS ALERT AND ORIENTED AND COOPERATIVE WITH CARE. COMPLAINS OF BACK PAIN, MEDICATED PER EMAR. ON 2L O2 VIA NC. NO COMPLAINTS OF SOB. VSS. IND IN HER ROOM. THE PATIENT'S WAS AT THE BEDSIDE THIS MORNING. ONCOLOGY CONSULTED, DR. ALTMAN SAW THE PATIENT TODAY. WILL CONTINUE TO MONITOR
--- NOTE | 2020-01-21 19:13 | NUR ---
Spiritual care note: Tina had some questions about ehr code status options. I answered her questions, and we discussed her wishes at length. She decided to change her status to DNR. I informed RN and placed DNR arm band.
[2020-01-22 04:36] LABS: Hematocrit 25.8 % (33.0-51.0); Hemoglobin 8.3 g/dL (11.5-16.0); Mean Corpuscular HGB 28.4 pg (26.0-34.0); Mean Corpuscular HGB Conc 32.2 g/dL (31.5-36.5); Mean Corpuscular Volume 88 fL (80-100); Mean Platelet Volume 9.1 fL (9.1-12.4); Platelet Count 397 K/mm3 (150-400); RDW Coefficient Variation 14.9 % (11.7-14.2); RDW Standard Deviation 47.3 fL (35.1-46.3); Red Blood Cell Count 2.92 M/mm3 (3.80-5.20); White Blood Cell Count 28.37 K/mm3 (4.00-11.30)
--- NOTE | 2020-01-22 04:48 | NUR ---
SHIFT SUMMARY PT A/O X4; IND AND COOPERATIVE WITH CARE. PT HAS SLEPT FOR THE MAJORITY OF THE SHIFT. C/O BACK PAIN AND TREATED PER EMR. CURRENTLY ON 2 LITERS O2 VIA NC. DENIES ANY SHORTNESS OF BREATH. VSS; RESTING COMFORTABLY IN BED WITH CALL LIGHT IN REACH.
[2020-01-22 05:05] LABS: Anion Gap 3 mmol/L (6-16); Blood Urea Nitrogen 20 mg/dL (8-24); Bun/Creatinine Ratio 27.4 (12.0-20.0); CO2, Blood 33 mmol/L (21-32); Calcium, Blood 8.4 mg/dL (8.5-10.1); Chloride, Blood 102 mmol/L (98-108); Creatinine, Blood 0.73 mg/dL (0.40-1.00); Glomerular Filtration Rate >60 (60-); Glucose, Blood 191 mg/dL (70-99); Potassium, Blood 3.9 mmol/L (3.5-5.5); Sodium, Blood 138 mmol/L (136-145)
[2020-01-22] MEDS ORDERED: BENMENLOZ (14:19)
[2020-01-22] MEDS ORDERED: GUAI600T33 PO (14:20)
[2020-01-22] MEDS ORDERED: LIDOCAINE1 EAC1 TOP (14:21)
[2020-01-22] MEDS ORDERED: ELIQUIS5 MG PO (14:23)
[2020-01-22] MEDS ORDERED: LEVO750 PO (14:24)
[2020-01-22] MEDS ORDERED: PRED20 PO (14:25)
== END 2020-01-22 15:16 | disposition home or self-care (01) | DRG 175 ==
LOC: ER 13:31 → MEDS 13:32 → ENPENDDIS 01-22 14:24 → MEDS 01-22 15:16
PROVIDERS: Emergency Medicine; Nurse Practitioner Acute Care; ADMIT Internal Medicine
DX: I26.99 Other pulmonary embolism without acute cor pulmonale (principal); J96.21 Acute and chronic respiratory failure with hypoxia; J18.9 Pneumonia, unspecified organism; J44.0 Chronic obstructive pulmonary disease with (acute) lower respiratory infection; J44.1 Chronic obstructive pulmonary disease with (acute) exacerbation; C78.00 Secondary malignant neoplasm of unspecified lung; Z20.828 Contact with and (suspected) exposure to other viral communicable diseases; E78.5 Hyperlipidemia, unspecified; F41.9 Anxiety disorder, unspecified; Z66 Do not resuscitate; I10 Essential (primary) hypertension; E11.9 Type 2 diabetes mellitus without complications; K21.9 Gastro-esophageal reflux disease without esophagitis; F17.210 Nicotine dependence, cigarettes, uncomplicated; Z51.5 Encounter for palliative care; Z92.21 Personal history of antineoplastic chemotherapy; Z92.3 Personal history of irradiation; Z99.81 Dependence on supplemental oxygen; Z79.82 Long term (current) use of aspirin; Z79.51 Long term (current) use of inhaled steroids
CPT/HCPCS: 0202U; 0241U; 36415; 71045; 71260; 80048; 80053; 83605; 83880; 84145; 84484; 85025; 85027; 85379; 85610; 85730; 87040; 93005; 93010; 93306; 94640; 94760; 94761; 96374; 96375; 99285-25; J1650; J2543; J2930; J7050; Q9967

== ENCOUNTER → 2020-02-02 | Outpatient (CLI) | payer OTHER ==
[~2020-02-02] MED LIST changes: +ADVAIR HFA 230-28 GM INH; -Advair Hfa 230-12 GM INH; +BENMENLOZ; -CHOL10002 PO; +ELIQUIS5 MG PO; +FAMO20 PO; +GUAI600T33 PO; +LEVO750 PO; +LIDOCAINE1 EAC1 TOP; +METFORMIN HCL500 M2 PO; +NEURONTIN300 MG PO; +OXYCODONE-ACET1 EAC3 PO; +SPIRIVA RESPIMAT4 G3 INH; +VITAMIN D31000 UNI1 PO
[2020-02-02 13:05] LABS: BASOPHILS ABSOLUTE AUTO 0.07 K/mm3 (0.00-0.23); BASOPHILS PERCENT AUTO 0 % (0-2); EOSINOPHILS ABSOLUTE AUTO 0.07 K/mm3 (0.00-0.68); EOSINOPHILS PERCENT AUTO 0 % (0-6); Hematocrit 25.3 % (33.0-51.0); Hemoglobin 7.7 g/dL (11.5-16.0); IMMATURE GRAN ABSOLUTE AUTO 0.23 K/mm3 (0.00-0.10); IMMATURE GRAN PERCENT AUTO 1 % (0-1); LYMPHOCYTES ABSOLUTE AUTO 0.62 K/mm3 (0.84-5.20); LYMPHOCYTES PERCENT AUTO 2 % (21-46); MONOCYTES ABSOLUTE AUTO 1.34 K/mm3 (0.16-1.47); MONOCYTES PERCENT AUTO 4 % (4-13); Mean Corpuscular HGB 27.4 pg (26.0-34.0); Mean Corpuscular HGB Conc 30.4 g/dL (31.5-36.5); Mean Corpuscular Volume 90 fL (80-100); Mean Platelet Volume 10.3 fL (9.1-12.4); NEUTROPHILS ABSOLUTE AUTO 29.02 K/mm3 (1.96-9.15); NEUTROPHILS PERCENT AUTO 93 % (41-73); Platelet Count 363 K/mm3 (150-400); RDW Coefficient Variation 15.9 % (11.7-14.2); RDW Standard Deviation 52.1 fL (35.1-46.3); Red Blood Cell Count 2.81 M/mm3 (3.80-5.20); White Blood Cell Count 31.35 K/mm3 (4.00-11.30)
== END | disposition home or self-care (01) ==
LOC: LAB 09:10
PROVIDERS: Internal Medicine Hematology & Oncology
DX: I10 Essential (primary) hypertension (principal)
CPT/HCPCS: 85025

== ENCOUNTER 2020-02-04 13:14 | Inpatient (IN) | payer OTHER ==
[~2020-02-04] VITALS: Ht 162.6 cm; Wt 71.1 kg
[~2020-02-04 13:14] MED LIST changes: -FAMO20 PO; -METFORMIN HCL500 M2 PO; -NEURONTIN300 MG PO; -OXYCODONE-ACET1 EAC3 PO; -SPIRIVA RESPIMAT4 G3 INH
[2020-02-04 14:12] LABS: Hematocrit 25.9 % (33.0-51.0); Mean Corpuscular HGB Conc 30.9 g/dL (31.5-36.5); Mean Corpuscular Volume 91 fL (80-100); Mean Platelet Volume 9.5 fL (9.1-12.4); Platelet Count 319 K/mm3 (150-400); RDW Coefficient Variation 15.8 % (11.7-14.2); RDW Standard Deviation 52.4 fL (35.1-46.3); Red Blood Cell Count 2.86 M/mm3 (3.80-5.20)
[2020-02-04 14:16] LABS: White Blood Cell Count 62.26 K/mm3 (4.00-11.30)
[2020-02-04 14:34] LABS: Alanine Aminotransfer (ALT/SGP 31 U/L (12-78); Albumin, Blood 1.9 g/dL (3.4-5.0); Albumin/Globulin Ratio 0.5 (0.8-1.8); Alk Phos 154 U/L (50-136); Anion Gap 5 mmol/L (6-16); Aspartate Aminotrans (AST/SGOT 40 U/L (12-37); Bilirubin, Total 0.3 mg/dL (0.1-1.0); Blood Urea Nitrogen 17 mg/dL (8-24); Bun/Creatinine Ratio 26.1 (12.0-20.0); CO2, Blood 30 mmol/L (21-32); Chloride, Blood 101 mmol/L (98-108); Creatinine, Blood 0.65 mg/dL (0.40-1.00); Glomerular Filtration Rate >60 (60-); Glucose, Blood 153 mg/dL (70-99); Potassium, Blood 4.4 mmol/L (3.5-5.5); Sodium, Blood 136 mmol/L (136-145); Total Protein, Blood 5.9 g/dL (6.4-8.2)
[2020-02-04 15:02] LABS: Base Excess Venous 2.1 mmol/L; PCO2 Venous 49.2 mmHg (38-42); PO2 Venous 126 mmHg (38-42); pH Blood Venous 7.36 (7.34-7.37)
[2020-02-04 15:17] LABS: BAND PERCENT MAN 3 % (0-8); BASOPHILS PERCENT MAN 0 % (0-2); EOSINOPHILS PERCENT MAN 0 % (0-6); LYMPHOCYTES ABSOLUTE MAN 1.86 K/mm3 (0.84-5.20); LYMPHOCYTES PERCENT MAN 3 % (21-46); MONOCYTES PERCENT MAN 0 % (4-13); NEUTROPHILS ABSOLUTE MAN 60.39 K/mm3 (1.96-9.15); SEG NEUTROPHILS PERCENT MAN 94 % (41-73); TOTAL CELLS COUNTED 100
[2020-02-04 17:22] LABS: Influenza A, PCR Negative (NEGATIVE); Influenza B, PCR Negative (NEGATIVE); Resp Syncytial Virus, PCR Negative (NEGATIVE); SARS-Cov-2 (COVID-19) PCR, MMC Negative (NEGATIVE)
[2020-02-04] MEDS ORDERED: OXYCODONE-ACET1 EAC3 PO (18:18)
[2020-02-04] MEDS ORDERED: NEURONTIN300 MG PO (18:19)
[2020-02-04] MEDS ORDERED: FAMO20 PO (18:20)
[2020-02-04] MEDS ORDERED: METFORMIN HCL500 M2 PO (18:20)
[2020-02-04] MEDS ORDERED: SPIRIVA RESPIMAT4 G3 INH (18:21)
[2020-02-05 23:20] LABS: Source, Urine Catheter
[2020-02-05 23:22] LABS: Bilirubin, Urine Neg (Neg); Blood, Urine 1+ (Neg); Glucose Qualitative, Urine Neg (Neg); Ketones, Urine Neg (Neg); Leukocyte Esterase, Urine Neg (Neg); Nitrite, Urine Neg (Neg); Protein, Urine 1+ (Neg); Specific Gravity, Urine 1.015 (1.003-1.022); Urobilinogen, Urine NORM (Normal)
[2020-02-05 23:37] LABS: Color, Urine Yellow (P-Yellow)
[2020-02-05 23:38] LABS: Appearance, Urine Clear (Clear); Bacteria Not Seen /hpf; Red Blood Cells, Urine 0-2 /hpf (0-2); Squamous Epithelial Cells Not Seen /hpf (Few); White Blood Cells, Urine Rare /hpf (0-5)
== END 2020-02-09 08:30 | DRG 189 ==
LOC: ER 13:14 → MEDS 17:20
PROVIDERS: Emergency Medicine; Nurse Practitioner Acute Care; Physician Assistant; ADMIT Hospitalist
DX: J96.21 Acute and chronic respiratory failure with hypoxia (principal); I26.99 Other pulmonary embolism without acute cor pulmonale; G92 Toxic encephalopathy; J44.1 Chronic obstructive pulmonary disease with (acute) exacerbation; M84.48XA Pathological fracture, other site, initial encounter for fracture; C34.11 Malignant neoplasm of upper lobe, right bronchus or lung; C78.1 Secondary malignant neoplasm of mediastinum; C79.89 Secondary malignant neoplasm of other specified sites; C78.7 Secondary malignant neoplasm of liver and intrahepatic bile duct; Z20.828 Contact with and (suspected) exposure to other viral communicable diseases; Z66 Do not resuscitate; Z51.5 Encounter for palliative care; E11.9 Type 2 diabetes mellitus without complications; E78.5 Hyperlipidemia, unspecified; F32.9 Major depressive disorder, single episode, unspecified; I10 Essential (primary) hypertension; K21.9 Gastro-esophageal reflux disease without esophagitis; F41.9 Anxiety disorder, unspecified; D64.9 Anemia, unspecified; Z86.711 Personal history of pulmonary embolism; Z99.81 Dependence on supplemental oxygen; Z87.891 Personal history of nicotine dependence
CPT/HCPCS: 0241U; 36415; 51702; 70450; 71045; 71260; 80053; 81001; 82803; 83605; 83880; 84484; 85025; 85379; 86850; 86900; 86901; 93005; 93010; 94640; 94660; 94760; 94762; 96365-59; 96375-59; 99285-25; A9270; J0692; J2270; J2405; J2930; J3010; J3370; Q9967